=== PATIENT | male | born 1980 | race Caucasian/White ===

== ENCOUNTER 2020-09-27 16:48 | Inpatient (IN) | payer BC ==
[~2020-09-27] VITALS: Ht 172.7 cm; Wt 87.3 kg
--- NOTE | 2020-09-27 18:13 | NUR ---
RN and PA assessment completed.
--- NOTE | 2020-09-27 18:24 | NUR ---
Pt assisted to restroom with hat and urinal for stool and urine samples. Samples of both obtained and walked to lab. IV started with aseptic technique and BC x1 set drawn along with blue top and pink top as ordered. MD notified of elevated temp, HR, and RR for sepsis protocol order needs. EKG 12 lead already completed before restroom with ST noted with mild ST depression in lead II on bedside EKG noted.
[2020-09-27] MEDS ORDERED: MORPHINE SULFATE 4 MG/ML, 1ML IVPush PRN (18:30)
[2020-09-27] MEDS ORDERED: LORazepam 2 MG/ML, 1ML IVPush PRN (18:30)
--- NOTE | 2020-09-27 18:35 | NUR ---
NS 1 liter bolus runnning wide open. Noted meds ordered.
[2020-09-27] MEDS ORDERED: MORPHINE SULFATE 4 MG/ML, 1ML ONE (18:43)
[2020-09-27] MEDS ORDERED: ONDANSETRON 2MG/ML, 2ML ONE (18:43)
[2020-09-27] MEDS ORDERED: LORazepam 2 MG/ML, 1ML ONE (18:44)
--- NOTE | 2020-09-27 18:46 | NUR ---
IV meds given as ordered. Report given at bedside to Yobani, RN and care transferred. RN aware of pending need for banana bag IV gtt and FSBS assessment.
[2020-09-27 18:59] LABS: MICROSCOPIC INDICATED
[2020-09-27] MEDS ORDERED: SODIUM CHLORIDE 0.9% 1,000ML IVBOLUS ONE (19:00)
[2020-09-27] MEDS ORDERED: ONDANSETRON 2MG/ML, 2ML IVPush ONE (19:00)
[2020-09-27 19:11] LABS: BASOPHILS % (AUTO) 0 % (0-1); EOSINOPHILS % (AUTO) 0 % (1-7); LYMPHOCYTES % (AUTO) 4 % (22-44); MEAN CORPUSCULAR HEMOGLOBIN 33.2 pg (27.5-34.5); MEAN PLATELET VOLUME 8.5 fL (7.4-10.4); MONOCYTES % (AUTO) 7 % (2-9); NEUTROPHILS % (AUTO) 89 % (42-75); PLATELET COUNT 211 x10^3/uL (130-400); RED BLOOD COUNT 4.96 x10^6/uL (4.38-5.82); RED CELL DISTRIBUTION WIDTH 13.7 % (9.4-14.8)
[2020-09-27 19:13] LABS: ALANINE AMINOTRANSFERASE 115 U/L (12-78); ALBUMIN 3.2 g/dL (3.4-5.0); ANION GAP 13 mmol/L (5-15); CALCIUM 8.4 mg/dL (8.5-10.1); CHLORIDE 101 mmol/L (98-107); CREATININE 0.95 mg/dL (0.7-1.3)
[2020-09-27 19:15] LABS: ALKALINE PHOSPHATASE 65 U/L (45-117); BILIRUBIN,TOTAL 2.4 mg/dL (0.2-1.0)
[2020-09-27 19:17] LABS: ACETONE, SERUM Negative (Negative)
[2020-09-27] MEDS ORDERED: MAGNESIUM SULFATE 1 GM, THIAMINE 100 MG, FOLIC ACID 1 MG, MVI ADULT 10 ML in SODIUM CHL... IV ONE (19:30)
[2020-09-27] MEDS ORDERED: OMNIPAQUE 350 MG/ML, 100ML BOTTLE ONE (19:35)
[2020-09-27 19:49] LABS: AMPHETAMINE SCREEN, URINE Negative (Negative); BARBITURATE SCREEN, URINE Negative (Negative); BENZODIAZEPINE SCREEN, URINE Negative (Negative); CANNABINOID SCREEN, URINE Positive (Negative); COCAINE SCREEN, URINE Positive (Negative); METHADONE SCREEN, URINE Negative (Negative); OPIATE SCREEN, URINE Negative (Negative)
[2020-09-27] MEDS ORDERED: POTASSIUM CHLORIDE 40 MEQ in SODIUM CHLORIDE 0.9% 500 ML IV ONE (20:00)
[2020-09-27] MEDS ORDERED: MAGNESIUM SULFATE PMX 4GM/100M 100 ML IVPB ONE (20:00)
[2020-09-27] MEDS ORDERED: MAGNESIUM SULFATE PMX 4GM/100M 100 ML ONE (20:08)
[2020-09-27] MEDS ORDERED: CEFTRIAXONE 2 GM in DEXTROSE 5% 50 ML IVPB ONE (20:30)
[2020-09-27] MEDS ORDERED: METRONIDAZOLE PMX 500MG/100ML 100 ML IVPB ONE (20:30)
[2020-09-27 20:37] LABS: CLOSTRIDIUM DIFFICILE ANTIGEN NEGATIVE; CLOSTRIDIUM DIFFICILE TOXIN NEGATIVE (Negative)
[2020-09-27 21:59] VITALS: BP 135/82
[2020-09-28] MEDS ORDERED: FOLIC ACID 1 MG TABLET PO ONE
[2020-09-28] MEDS ORDERED: LORazepam 2 MG/ML, 1ML IV PRN ×5
[2020-09-28] MEDS ORDERED: SODIUM CHLORIDE 0.9% 1,000ML IV ONE (00:30)
[2020-09-28] MEDS ORDERED: ONDANSETRON 2MG/ML, 2ML IVPush PRN (00:30)
[2020-09-28] MEDS: DIAZEPAM 10 MG TABLET PO SCH ×4 (00:52→18:12)
[2020-09-28] MEDS ORDERED: ACETAMINOPHEN 325 MG TABLET PO PRN (01:00)
[2020-09-28 01:09] VITALS: BP 110/74
[2020-09-28] MEDS: METRONIDAZOLE PMX 500MG/100ML 100 ML IV SCH ×4 (01:12→18:13)
[2020-09-28 01:14] LABS: ANION GAP 10 mmol/L (5-15); CALCIUM 7.7 mg/dL (8.5-10.1); CHLORIDE 103 mmol/L (98-107); CREATININE 0.66 mg/dL (0.7-1.3)
[2020-09-28 01:17] LABS: INTERNATIONAL NORMALIZED RATIO 1.09 (0.93-1.1); PROTHROMBIN TIME 11.6 Seconds (9.6-11.5)
[2020-09-28] MEDS ORDERED: POTASSIUM CHLORIDE 20 MEQ TAB.ER.PRT PO ONE (02:30)
[2020-09-28] MEDS: POTASSIUM CHLORIDE 20 MEQ in LACTATED RINGERS 1,000 ML IV SCH ×2 (03:00→15:40)
[2020-09-28 04:29] VITALS: BP 117/82
[2020-09-28 05:23] LABS: BASOPHILS % (AUTO) 0 % (0-1); EOSINOPHILS % (AUTO) 0 % (1-7); LYMPHOCYTES % (AUTO) 10 % (22-44); MEAN CORPUSCULAR HEMOGLOBIN 32.9 pg (27.5-34.5); MEAN CORPUSCULAR HGB CONC 34.9 g/dL (33.2-36.2); MONOCYTES % (AUTO) 6 % (2-9); NEUTROPHILS % (AUTO) 83 % (42-75); PLATELET COUNT 172 x10^3/uL (130-400); RED BLOOD COUNT 4.35 x10^6/uL (4.38-5.82); RED CELL DISTRIBUTION WIDTH 13.8 % (9.4-14.8)
[2020-09-28 05:46] LABS: ALBUMIN 2.6 g/dL (3.4-5.0); ANION GAP 12 mmol/L (5-15); CALCIUM 7.9 mg/dL (8.5-10.1); CHLORIDE 105 mmol/L (98-107)
[2020-09-28 05:50] LABS: ALANINE AMINOTRANSFERASE 78 U/L (12-78); ALKALINE PHOSPHATASE 46 U/L (45-117); BILIRUBIN,TOTAL 1.5 mg/dL (0.2-1.0); CREATININE 0.59 mg/dL (0.7-1.3); TOTAL PROTEIN 6.7 g/dL (6.4-8.2)
[2020-09-28 06:54] VITALS: BP 126/76
[2020-09-28] MEDS ORDERED: THIAMINE 100 MG in DEXTROSE 5% 50 ML IVPB SCH (09:00)
[2020-09-28] MEDS: MULTIVITAMINS/MINERALS TABLET PO SCH (09:06)
[2020-09-28] MEDS: THIAMINE 100MG TABLET PO SCH (09:06)
[2020-09-28 14:35] VITALS: BP 120/78
[2020-09-28] MEDS: morphine SULFATE 10 MG/ML, 1ML IV PRN ×2 (15:53→22:01)
[2020-09-28 19:33] VITALS: BP 138/87
[2020-09-28] MEDS: CEFTRIAXONE 2 GM in DEXTROSE 5% 50 ML IVPB SCH (20:51)
[2020-09-29] MEDS: METRONIDAZOLE PMX 500MG/100ML 100 ML IV SCH ×4 (00:38→18:58)
[2020-09-29 01:02] VITALS: BP 124/77
[2020-09-29] MEDS: MELATONIN 5 MG TABLET PO PRN ×2 (02:29→23:23)
[2020-09-29] MEDS: POTASSIUM CHLORIDE 20 MEQ in LACTATED RINGERS 1,000 ML IV SCH ×2 (03:31→13:58)
[2020-09-29 07:55] VITALS: BP 114/73
[2020-09-29] MEDS: THIAMINE 100MG TABLET PO SCH (09:31)
[2020-09-29] MEDS: MULTIVITAMINS/MINERALS TABLET PO SCH (09:31)
[2020-09-29 09:59] LABS: BASOPHILS % (AUTO) 1 % (0-1); EOSINOPHILS % (AUTO) 0 % (1-7); LYMPHOCYTES % (AUTO) 9 % (22-44); MEAN CORPUSCULAR HEMOGLOBIN 32.9 pg (27.5-34.5); MEAN CORPUSCULAR HGB CONC 34.4 g/dL (33.2-36.2); MEAN PLATELET VOLUME 7.6 fL (7.4-10.4); MONOCYTES % (AUTO) 9 % (2-9); NEUTROPHILS % (AUTO) 81 % (42-75); PLATELET COUNT 209 x10^3/uL (130-400); RED BLOOD COUNT 3.96 x10^6/uL (4.38-5.82); RED CELL DISTRIBUTION WIDTH 13.4 % (9.4-14.8)
[2020-09-29 10:10] LABS: ANION GAP 12 mmol/L (5-15); CALCIUM 7.7 mg/dL (8.5-10.1); CHLORIDE 106 mmol/L (98-107); CREATININE 0.41 mg/dL (0.7-1.3)
[2020-09-29 12:17] VITALS: BP 136/86
[2020-09-29] MEDS ORDERED: POTASSIUM CHLORIDE 20 MEQ TAB.ER.PRT PO ONE (13:00)
[2020-09-29] MEDS: morphine SULFATE 10 MG/ML, 1ML IV PRN ×2 (13:59→21:12)
[2020-09-29 20:22] VITALS: BP 128/86
[2020-09-29] MEDS: CEFTRIAXONE 2 GM in DEXTROSE 5% 50 ML IVPB SCH (21:12)
[2020-09-29] MEDS: DIAZEPAM 5 MG TABLET PO SCH (23:23)
[2020-09-30] MEDS: METRONIDAZOLE PMX 500MG/100ML 100 ML IV SCH ×3 (00:36→13:00)
[2020-09-30 00:40] VITALS: BP 135/94
[2020-09-30] MEDS: DIAZEPAM 5 MG TABLET PO SCH ×2 (06:28→13:07)
[2020-09-30 07:05] VITALS: BP 123/80
[2020-09-30] MEDS: MULTIVITAMINS/MINERALS TABLET PO SCH (08:32)
[2020-09-30] MEDS: THIAMINE 100MG TABLET PO SCH (08:32)
[2020-09-30] MEDS ORDERED: AMOX1TAB12 PO (11:27)
[2020-09-30] MEDS ORDERED: POTA20TA14 PO (11:27)
== END 2020-09-30 13:46 | disposition home or self-care (01) | DRG 872 ==
LOC: ED 20:00 → EDIP 20:08 → ED 20:23 → 4WST 21:39 → 4EST 21:40
PROVIDERS: ADMIT Family Medicine; ATTEND Internal Medicine
DX: A41.9 Sepsis, unspecified organism (principal); K57.20 Diverticulitis of large intestine with perforation and abscess without bleeding; E87.1 Hypo-osmolality and hyponatremia; F10.239 Alcohol dependence with withdrawal, unspecified; I47.2 Ventricular tachycardia; E83.42 Hypomagnesemia; E86.0 Dehydration; E86.1 Hypovolemia; E87.6 Hypokalemia; Y90.9 Presence of alcohol in blood, level not specified; F14.10 Cocaine abuse, uncomplicated; F17.210 Nicotine dependence, cigarettes, uncomplicated; I10 Essential (primary) hypertension; K75.9 Inflammatory liver disease, unspecified; Z82.49 Family history of ischemic heart disease and other diseases of the circulatory system; M10.9 Gout, unspecified; F12.10 Cannabis abuse, uncomplicated
CPT/HCPCS: 36415; 74177; 80048; 80053; 80074; 80307; 80320; 81001; 82010; 82962; 83036; 83605; 83690; 83735; 85025; 85610; 87040; 87046; 87086; 87324; 87427; 89055; 93005; 96374; 96375; 99291; G0378; J0696; J2405; J3480; Q9967; G0480; J2060; J2270; J3475; J7030; J7040; J7120